=== PATIENT | male | born 1965 | race Caucasian/White ===

== ENCOUNTER 2016-08-18 10:33 | Emergency (ER) | payer OTHER ==
[~2016-08-18] VITALS: Ht 185.4 cm; Wt 106.6 kg
[2016-08-18 10:44] VITALS: BP 142/97
--- NOTE | 2016-08-18 11:09 | ED SKIN/ALLERGY COMPLAINT ---
See Addendum History of Present Illness General Chief Complaint: Skin Rash/ Abcess Stated Complaint: "PER PT RED LUMP ON UPPER BACK" Source: patient Exam Limitations: no limitations Vital Signs & Intake/Output Vital Signs & Intake/Output Vital Signs Date Time Temp Pulse Resp B/P B/P Pulse O2 O2 Flow FiO2 Mean Ox Delivery Rate 08/18 1044 97.1 78 18 142/97 98 Room Air Allergies Coded Allergies: No Known Allergies (08/18/16) Reconcile Medications Sulfamethoxazole/Trimethoprim (Bactrim Ds Tablet) 800 MG-160 MG TABLET 1 TAB PO BID abscess Triage Note: 51 Y/0 MALE C/O ? ABCESS TO R UPPER BACK X 7 DAYS, NO IMPROVEMENT WITH PO ANTIBIOTICS, CURRETNLY ON DAY 6 OF 10 DAY COURSE. DENIES FEVERS. RED RAISED AREA NOTED. Triage Nurses Notes Reviewed? yes Onset: Gradual Duration: worse persistent since (1 week) Timing: remote history Severity: moderate Severity Numbers: 6 Location: back Possible Factors: no cause identified HPI: Patient is a 51-year-old male presenting to the emergency department she complaint of abscess to right upper back. He reports that he has had a cyst over the past 2 years, became inflamed and angry over the past week or so. Denies any fevers or chills nausea or vomiting. Area is painful to palpation. He also notices red and inflamed. He went to a walk in clinic on Sunday and I started him on antibiotics, they did not drain the area. (GOKUL ZIMMERMAN) Past History Travel History Traveled to Day past 21 day No Medical History Any Pertinent Medical History? 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 No (GOKUL ZIMMERMAN) Review of Systems Review of Systems Constitutional: Reports: no symptoms. Comments Review of systems: See HPI, All other systems negative. Constitutional, no chills fever or weight loss HEENT: No visual changes no sore throat no congestion Cardiovascular: No chest pain ,palpitation Skin, no jaundice Respiratory: No dyspnea cough sputum or hemoptysis GI: No nausea no vomiting Muscle skeletal: no back pain, no neck pain, Neurologic: No numbness Immunology: No splenectomy or history of AIDS (GOKUL ZIMMERMAN) Physical Exam Physical Exam General Appearance: well developed/nourished, no apparent distress, alert, awake , comfortable Comments: Well-developed well-nourished no apparent distress. HEENT: Atraumatic, extraocular motion intact Neck: Normal inspection Back: Nontender Respiratory: No respiratory distress Extremities: No edema, full range of motion Skin: Erythematous, slightly raised and fluctuant lesion approximately 3 cm in diameter noted on the right upper back. Moderate surrounding erythema approximately 4 cm. Mildly tender to palpation. No active discharge. Neuro: Alert and oriented x3 Psych: Mood affect normal, normal memory normal judgment. (GOKUL ZIMMERMAN) Progress Differential Diagnosis: cellulitis, abscess, folliculitis, cyst Plan of Care: Orders Procedure Date/time Status TRUNK AREA CULTURE 08/18 1108 Active Microbiology 08/18 1152 TRUNK: Culture & Sensitivity - RES 08/18 1152 TRUNK: Gram Stain - RES Departure Departure Time of Disposition: 1122 Disposition: HOME OR SELF CARE Condition: Stable Clinical Impression Primary Impression: Abscess Referrals: PATIENT HAS NO PRIMARY CARE DR (PCP/Family) Additional Instructions: Follow-up with your primary care physician call to make an appointment. Take antibiotics as prescribed. Continue previously prescribed antibiotics. Keep area clean. Warm soaks several times a day. Return for worsening symptoms or concerns. Departure Forms: Customer Survey General Discharge Information Prescriptions: Current Visit Scripts Sulfamethoxazole/Trimethoprim (Bactrim Ds Tablet) 1 TAB PO BID #14 TAB (GOKUL ZIMMERMAN) PA/FUEL CELL DESIGNER Co-Sign Statement Statement: ED Attending supervision documentation- [] I saw and evaluated the patient. I have also reviewed all the pertinent lab results and diagnostic results. I agree with the findings and the plan of care as documented in the PA's/FUEL CELL DESIGNER's documentation. [X] I have reviewed the ED Record and agree with the PA's/FUEL CELL DESIGNER's documentation. [] Additions or exceptions (if any) to the PAs/FUEL CELL DESIGNER's note and plan are summarized below: [] (SHARATH BILLINGSLEY,JESSIE) Procedures Incision and Drainage Site: right upper back Blade Size: 10 I & D Procedure: Yes: betadine prep, sterile drapes applied, sterile dressing applied, wick placed. Progress: tolerated procedure well. (HUMAIRA VALERA,GOKUL)
[2016-08-18] MEDS ORDERED: BACTRIM DS TAB1 EACH PO (11:24)
== END 2016-08-18 12:11 ==
LOC: ERH 10:33
DX: L02.212 Cutaneous abscess of back [any part, except buttock and flank] (principal)
CPT/HCPCS: 87070

== ENCOUNTER 2016-08-20 14:13 | Emergency (ER) | payer OTHER ==
[~2016-08-20] VITALS: Ht 185.4 cm; Wt 106.6 kg
[~2016-08-20 14:13] MED LIST: BACTRIM DS TAB1 EACH PO
[2016-08-20 14:20] VITALS: BP 134/93
--- NOTE | 2016-08-20 14:48 | ED SKIN/ALLERGY COMPLAINT ---
History of Present Illness General Chief Complaint: Suture Removal/Wound Recheck Stated Complaint: WOUND RECHECK Source: patient Exam Limitations: no limitations Vital Signs & Intake/Output Vital Signs & Intake/Output Vital Signs Date Time Temp Pulse Resp B/P B/P Pulse O2 O2 Flow FiO2 Mean Ox Delivery Rate 08/20 1420 98.0 70 16 134/93 98 Room Air Room Air Allergies Coded Allergies: No Known Allergies (08/20/16) Reconcile Medications Sulfamethoxazole/Trimethoprim (Bactrim Ds Tablet) 800 MG-160 MG TABLET 1 TAB PO BID abscess Triage Note: PT TO TRIAGE FOR PACKING REMOVAL AND WOUND CHECK AFTER HAVING AN ABCESS DRAINED Triage Nurses Notes Reviewed? yes Onset: Gradual Duration: better Timing: recent history Severity: mild Severity Numbers: 1 HPI: Patient is a 51-year-old male who presents emergency room for request of wound recheck of abscess in which an incision and drainage was performed at [facility] room 2 days ago where he was previously prescribed amoxicillin and during his emergency room visit 2 days ago Bactrim was also prescribed. Patient has been compliant with medications and states his symptoms have significantly improved. Denies any fevers. Past History Travel History Traveled to Day past 21 day No Medical History Any Pertinent Medical History? 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 No Review of Systems Review of Systems Constitutional: Reports: no symptoms. EENTM: Reports: no symptoms. Respiratory: Reports: no symptoms. Cardiovascular: Reports: no symptoms. GI: Reports: no symptoms. Genitourinary: Reports: no symptoms. Musculoskeletal: Reports: no symptoms. Skin: Reports: see HPI. Neurological/Psychological: Reports: no symptoms. Hematologic/Endocrine: Reports: no symptoms. Immunologic/Allergic: Reports: no symptoms. All Other Systems: Reviewed and Negative Physical Exam Physical Exam General Appearance: no apparent distress, alert, awake Skin: warm/dry Comments: Well-developed well-nourished no apparent distress. HEENT: Atraumatic, extraocular motion intact Neck: Supple, no lymphadenopathy Back: Nontender Respiratory: No respiratory distress Extremities: No edema, full range of motion Neuro: Alert and oriented x3 Psych: Mood affect normal, normal memory normal judgment. Diagram Body: 1) Noted bandage and packing with surrounding erythema warmth Progress Differential Diagnosis: abscess/cellulitis, allergic reaction, contact dermatitis Plan of Care: The bandage and packing was removed immediately there was mild purulent discharge which upon pressure surrounding the incision site mild retained purulence was discharged. I then used a Cher curved clamp into the incision site in which there was no retained cavity of purulence. I then applied gauze and Tegaderm to the region. Patient was afebrile no concerns of sepsis or systemic infection. Patient was given extra bandages and advised to follow-up or return to emergency room as instructed and discharge plan Departure Departure Disposition: HOME OR SELF CARE Condition: Stable Clinical Impression Primary Impression: Wound check, abscess Secondary Impressions: Cellulitis Referrals: PATIENT HAS NO PRIMARY CARE DR (PCP/Family) Additional Instructions: As discussed begin applying warm compresses to the area. Continue previously prescribed antibiotics. Change the dressings once a day. If you note worsening symptoms or developing new concerning symptom return to emergency room immediately. In one week follow-up with your primary care doctor Departure Forms: Customer Survey General Discharge Information
== END 2016-08-20 14:36 ==
LOC: ERH 14:13
DX: L03.90 Cellulitis, unspecified (principal)
CPT/HCPCS: 99282